=== PATIENT | female | born 1980 ===

== ENCOUNTER 2017-12-22 18:43 | Emergency (ER) | payer MEDICAID ==
[2017-12-22 19:23] VITALS: BP 120/60; PULSE 90; RESP 18; TEMP 98.3; O2SAT 99
--- NOTE | 2017-12-22 21:22 | ED PDOC ---
HPI: General Adult Time Seen by Provider: 12/22/17 19:37 Chief Complaint (Nursing): Eye Problem Chief Complaint (Provider): Eye discharge and URI symptoms History Per: Patient History/Exam Limitations: no limitations Onset/Duration Of Symptoms: Days (one week) Additional Complaint(s): 37 year old female presents to the ED complaining of redness and thick mucus like discharge from eye. Also reports of coughing and runny nose onset for about one week. States with associated symptoms of nasal congestion and yellow phlegm. Otherwise: (-) visual changes, (-) FB to eyes, (-) contact lens wear, (- ) other injury, (-) fever, (-) chills, (-) chest pain, (-) shortness of breath, (-) dyspnea, (-) hemoptysis, (-) upper back pain, (-) travel, (-) recent prolonged immobility. PMD: Max Roberts Past Medical History Reviewed: Historical Data, Nursing Documentation, Vital Signs Vital Signs: Last Vital Signs Temp 98.3 F 12/22/17 19:21 Pulse 90 12/22/17 19:21 Resp 18 12/22/17 19:21 BP 120/60 12/22/17 19:21 Pulse Ox 99 12/22/17 21:33 - Medical History PMH: No Chronic Diseases - Family History Family History: States: Unknown Family Hx - Social History Current smoker - smoking cessation education provided: No Alcohol: None Drugs: Denies - Home Medications Home Medications: Ambulatory Orders Medication Instructions Recorded Azithromycin [Z-Dominguez] 250 mg PO DAILY #6 tab 12/22/17 Guaifenesin 400 mg PO QID #20 tablet 12/22/17 Tobramycin [Tobrex 5 ml] 1 drop OU Q4H #1 bottle 12/22/17 - Allergies Allergies/Adverse Reactions: Allergies Allergy/AdvReac Type Severity Reaction Status Date / Time No Known Allergies Allergy Verified 12/22/17 19:21 Review of Systems ROS Statement: Except As Marked, All Systems Reviewed And Found Negative Constitutional: Negative for: Fever, Chills Eyes: Positive for: Redness, Other (thick mucus discharge). Negative for: Pain ENT: Positive for: Nose Discharge, Nose Congestion Cardiovascular: Negative for: Chest Pain Respiratory: Positive for: Cough (yellow phlegm) Physical Exam - Physical Exam Comments: SKIN: Warm, dry; (-) cyanosis. EYES: (+) yellow discharge LIDS & LASHES: Normal. PUPILS: Pupils equal and reactive. EOM's: Intact. CONJUNCTIVAE: (+) injection. HEENT: (-) facial swelling and erythema, (-) facial blisters. ENMT: Mucous membranes moist. Airway patent: (-) stridor. Pharynx: (-) swelling, (-) erythema, (-) exudate. NECK: (-) tenderness, (-) stiffness, (-) lymphadenopathy. CHEST AND RESPIRATORY: (-) rhonchi, (-) rales, (-) wheezes, (-) pleural rub; breath sounds equal bilaterally. HEART AND CARDIOVASCULAR: (-) irregularity; (-) murmur, (-) gallop. ABDOMEN AND GI: Soft; (-) tenderness. EXTREMITIES: (-) deformity; (-) edema. NEURO AND PSYCH: Mental status as above. Cranial nerves grossly intact; strength symmetric. - ECG O2 Sat by Pulse Oximetry: 99 (RA) Pulse Ox Interpretation: Normal Medical Decision Making Medical Decision Making: Time: 1935 Initial Impression: conjunctivitis, bronchitis Initial Plan: --Evaluation Advised to follow up with primary care physician / referral physician provided in 1-2 days without fail. Advised to take medication as prescribed. Return to the emergency room at any time for any new or worsening symptoms. Patient states she fully agrees with and understands discharge instructions. States that she agrees with the plan and disposition. Verbalized and repeated discharge instructions and plan. I have given the patient opportunity to ask any additional questions. Scribe Attestation: Documented by Bisi Mac, acting as a scribe for Geno Hong PA-C Provider Scribe Attestation: All medical record entries made by the Scribe were at my direction and personally dictated by me. I have reviewed the chart and agree that the record accurately reflects my personal performance of the history, physical exam, medical decision making, and the department course for this patient. I have also personally directed, reviewed, and agree with the discharge instructions and disposition. Disposition - Clinical Impression Clinical Impression: Conjunctivitis, Bronchitis - Patient ED Disposition Is Patient to be Admitted: No - Disposition Referrals: Max Roberts MD [Staff Provider] - Disposition: Routine/Home Disposition Time: 19:45 Condition: STABLE Additional Instructions: Thank you for letting us take care of you today. You were treated for conjunctivitis, bronchitis. The emergency medical care you received today was directed at your acute symptoms. If you were prescribed any medication, please fill it and take as directed. It may take several days for your symptoms to resolve. Return to the Emergency Department if your symptoms worsen, do not improve, or if you have any other problems. Please contact your doctor in 2 days for re-evaluation and follow up / or call one of the physicians/clinics you have been referred to that are listed on the Patient Visit Information form that is included in your discharge packet. Bring any paperwork you were given at discharge with you along with any medications you are taking to your follow up visit. Our treatment cannot replace ongoing medical care by a primary care provider (PCP) outside of the emergency department. Thank you for allowing the [facility] team to be part of your care today. Prescriptions: Azithromycin [Z-Dominguez] 250 mg PO DAILY #6 tab Guaifenesin 400 mg PO QID #20 tablet Tobramycin [Tobrex 5 ml] 1 drop OU Q4H #1 bottle Instructions: Acute Bronchitis, Conjunctivitis ([place]) Forms: [employer] ([place]), [facility] ED School/Work Excuse - PA / SENIOR CATEGORY MANAGER / Resident Statement MD/DO has reviewed & agrees with the documentation as recorded.
== END 2017-12-22 20:13 | disposition home or self-care (01) ==
LOC: H.ER 18:43
DX: H10.9 Unspecified conjunctivitis (principal); J40 Bronchitis, not specified as acute or chronic